=== PATIENT | male | born 1960 | race Caucasian/White ===

== ENCOUNTER 2018-08-22 23:09 | Emergency (ER) | payer MEDICAID ==
[~2018-08-22] VITALS: Ht 177.8 cm; Wt 81.6 kg
[2018-08-22 23:16] VITALS: BP 141/81
--- NOTE | 2018-08-22 23:23 | NUR ---
PT AMBULATED TO THE LOBBY, VSS
--- NOTE | 2018-08-23 00:53 | NUR ---
Patient ambulated to bed 12. RN evaluating patient at bedside.
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
--- NOTE | 2018-08-23 01:15 | NUR ---
PATIENT GIVEN URINAL AND ASKED TO PROVIDE URINE SAMPLE. STATES HE DOES NOT NEED TO PEE RIGHT NOW.
[2018-08-23 01:42] LABS: BASOPHILS % (AUTO) 0.5 % (0.0-2.0); EOSINOPHILS # (AUTO) 0.1 K/uL (0-0.4); EOSINOPHILS % (AUTO) 3.1 % (0.0-4.0); HEMATOCRIT 34.4 % (36-52); HEMOGLOBIN 11.4 g/dL (12.0-18.0); LYMPHOCYTES % (AUTO) 45.9 % (20.5-51.1); MEAN CORPUSCULAR HEMOGLOBIN 32 pg (27-31); MEAN CORPUSCULAR HGB CONC 33 g/dL (33-37); MEAN CORPUSCULAR VOLUME 96.7 fL (80-94); MONOCYTES # (AUTO) 0.3 K/uL (0.8-1.0); MONOCYTES % (AUTO) 7.8 % (1.7-9.3); NEUTROPHILS # (AUTO) 1.9 K/uL (1.8-7.7); NEUTROPHILS % (AUTO) 42.7 % (42.2-75.2); PLATELET COUNT (AUTO) 87 K/uL (140-450); RED BLOOD CELL COUNT(AUTO) 3.56 MIL/uL (4.20-6.10); RED CELL DISTRIBUTION WIDTH 17.6 % (11.6-13.7); WHITE BLOOD COUNT (AUTO) 4.4 K/uL (4.8-10.8)
--- NOTE | 2018-08-23 01:50 | NUR ---
PT asleep in bed. Easily arousable to name. VSS. Bedrails x2 up.
[2018-08-23 02:02] LABS: ANION GAP 16.4 (8-16); CREATININE 0.9 mg/dL (0.7-1.3); POTASSIUM 3.4 mmol/L (3.5-5.1)
[2018-08-23 02:07] LABS: ALBUMIN 3.1 g/dL (3.4-5.0); TOTAL BILIRUBIN 0.6 mg/dL (0.0-1.0)
[2018-08-23] MEDS ORDERED: FUROSEMIDE 40 MG TAB PO ONE (02:10)
--- NOTE | 2018-08-23 02:30 | NUR ---
Patient discharged with v/s stable. Written and verbal after care instructions given and explained. Patient alert, oriented and verbalized understanding of instructions. Ambulatory with steady gait. All questions addressed prior to discharge. ID band removed. Patient advised to follow up with PMD. Rx of Lasix and Ibuprofen given. Patient educated on indication of medication including possible reaction and side effects. Opportunity to ask questions provided and answered.
[2018-08-23 02:33] VITALS: BP 138/74
== END 2018-08-23 02:30 | disposition home or self-care (01) ==
LOC: MED 23:09
DX: D61.818 Other pancytopenia (principal); E87.6 Hypokalemia; R60.0 Localized edema; R74.0 Nonspecific elevation of levels of transaminase and lactic acid dehydrogenase [LDH]; B35.1 Tinea unguium; Z59.0 Homelessness; Z88.0 Allergy status to penicillin; Z98.890 Other specified postprocedural states
CPT/HCPCS: 80053; 83880; 85025; 99283

== ENCOUNTER 2018-08-23 23:12 | Emergency (ER) | payer MEDICAID ==
[~2018-08-23] VITALS: Ht 177.8 cm; Wt 79.4 kg
[2018-08-23 23:19] VITALS: BP 106/60
[2018-08-23 23:22] VITALS: BP 106/60
--- NOTE | 2018-08-23 23:22 | NUR ---
TO LOBBY A/W BED VIA W/C , PAOLA NOTED
[2018-08-24] MEDS ORDERED: NACL 0.9% 1,000 ML IV ONE (04:39)
--- NOTE | 2018-08-24 04:40 | NUR ---
PT TAKEN TO BED 1
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
--- NOTE | 2018-08-24 04:53 | NUR ---
PT REFUSES IV AT THIS TIME Addendum: 08/24/18 at 0455 by [email or web address] PT REFUSES IV ACCESS AT THIS TIME. MADE AWARE
--- NOTE | 2018-08-24 06:02 | NUR ---
Patient discharged with v/s stable. Written and verbal after care instructions given and explained. Patient verbalized understanding. ESCOTED OUT BY SECURITY. All questions addressed prior to discharge. Advised to follow up with PMD.
== END 2018-08-24 06:03 | disposition home or self-care (01) ==
LOC: MED 23:12
DX: M79.10 Myalgia, unspecified site (principal); H54.61 Unqualified visual loss, right eye, normal vision left eye
CPT/HCPCS: 99283

== ENCOUNTER 2018-09-03 09:23 | Inpatient (IN) | payer MEDICAID ==
[~2018-09-03] VITALS: Ht 177.8 cm; Wt 97.5 kg
--- NOTE | 2018-09-03 09:23 | NUR ---
Patient BIBA BLS, transferred to bed 4. RN evaluating patient at bedside.
--- NOTE | 2018-09-03 09:29 | NUR ---
Dr. Barrios evaluating patient at bedside.
[2018-09-03 09:30] VITALS: BP 163/96
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
--- NOTE | 2018-09-03 10:09 | NUR ---
Dr. Wellington evaluating patient at bedside.
[2018-09-03] MEDS ORDERED: KETOROLAC 30 MG/ML VIAL IVP ONE (10:15)
[2018-09-03] MEDS ORDERED: LEVOFLOXACIN 500 MG/D5W PREMIX 100 ML IV ONE (10:15)
[2018-09-03] MEDS ORDERED: ZOLPIDEM 5 MG TAB PO PRN (10:35)
[2018-09-03] MEDS ORDERED: VANCOMYCIN PER PHARMACY MC PRN (10:35)
[2018-09-03] MEDS ORDERED: ACETAMINOPHEN 325 MG TAB PO PRN (10:35)
[2018-09-03] MEDS ORDERED: ONDANSETRON 4 MG/2 ML VIAL IVP PRN (10:35)
--- NOTE | 2018-09-03 10:44 | NUR ---
information tech at bedside.
[2018-09-03 10:56] LABS: BASOPHILS % (AUTO) 0.7 % (0.0-2.0); EOSINOPHILS # (AUTO) 0.1 K/uL (0-0.4); EOSINOPHILS % (AUTO) 1.2 % (0.0-4.0); HEMATOCRIT 39.4 % (36-52); LYMPHOCYTES % (AUTO) 38.3 % (20.5-51.1); MEAN CORPUSCULAR HEMOGLOBIN 32 pg (27-31); MEAN CORPUSCULAR HGB CONC 33 g/dL (33-37); MEAN CORPUSCULAR VOLUME 98.1 fL (80-94); MONOCYTES # (AUTO) 0.5 K/uL (0.8-1.0); MONOCYTES % (AUTO) 8.6 % (1.7-9.3); NEUTROPHILS # (AUTO) 2.7 K/uL (1.8-7.7); NEUTROPHILS % (AUTO) 51.2 % (42.2-75.2); PLATELET COUNT (AUTO) 105 K/uL (140-450); RED BLOOD CELL COUNT(AUTO) 4.01 MIL/uL (4.20-6.10); RED CELL DISTRIBUTION WIDTH 18.1 % (11.6-13.7); WHITE BLOOD COUNT (AUTO) 5.3 K/uL (4.8-10.8)
[2018-09-03 11:01] LABS: ANION GAP 14.2 (8-16); CARBON DIOXIDE 27.8 mmol/L (21-32); CREATININE 0.7 mg/dL (0.7-1.3)
--- NOTE | 2018-09-03 11:05 | NUR ---
PT UNABLE TO GIVE URINE AT THIS TIME. DEXTER AMADOR NOTIFIED. DEXTER AMADOR STATED PT COULD BE TAKEN TO MED/SURG WITHOUT URINE SAMPLE.
[2018-09-03 11:07] LABS: ALBUMIN 3.5 g/dL (3.4-5.0); TOTAL BILIRUBIN 0.8 mg/dL (0.0-1.0)
[2018-09-03 11:18] LABS: FREE T4 (FREE THYROXINE) 0.9 ng/dL (0.76-1.46); MAGNESIUM 1.3 mg/dL (1.8-2.4); THYROID STIMULATING HORMONE 1.9 uIU/mL (0.34-3.74)
--- NOTE | 2018-09-03 11:30 | NUR ---
Patient will be admitted to care of DR MONTANO. Admited to MED/SURG. Will go to room 105A. Belongings list completed. Report to BOBY ROSA.
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
[2018-09-03 11:57] LABS: PROTHROMBIN TIME 11.3 secs (10.8-13.4)
[2018-09-03 12:00] VITALS: BP 159/74
[2018-09-03] MEDS: NACL 0.9% 1,000 ML IV SCH (12:28)
--- NOTE | 2018-09-03 13:00 | NUR ---
PATIENT SITTING IN BED WATCHING TV. NO SIGNS OF DISTRESS ON RA. BED IN LOW POSITION. PATIENT ABLE TO MAKE NEEDS KNOWN. WILL CONTINUE TO MONITOR
[2018-09-03 13:24] LABS: APPEARANCE,URINE CLEAR (CLEAR); BILIRUBIN,URINE NEGATIVE (NEGATIVE); BLOOD, URINE TRACE-L (NEGATIVE); COLOR,URINE YELLOW (YELLOW); LEUKOCYTE ESTERASE ,URINE NEGATIVE (NEGATIVE); NITRITE, URINE NEGATIVE (NEGATIVE); PH,URINE 6.5 (5.0-9.0); UGLUCOSE NEGATIVE (NEGATIVE)
[2018-09-03 13:48] LABS: WBC,URINE NONE SEEN /HPF (0-5)
[2018-09-03 13:49] LABS: BARBITURATE, URINE NEG. ng/ml (NEG <=200); BENZODIAZEPINE, URINE NEG. ng/mL (NEG <=200); CANNABINOID, URINE NEG. ng/mL (NEG <=50); COCAINE, URINE NEG. ng/mL (NEG <=300); OPIATE, URINE NEG. ng/mL (NEG <=2000); PHENCYCLIDINE SCREEN,URINE NEG. ng/mL (NEG <=25)
--- NOTE | 2018-09-03 14:10 | NUR ---
SKIN ASSESSMENT DONE WITH PRIMARY RN , PT. WAS MAD WHEN QUESTION OF MEDICAL HISTORY. NO ACTIVE OPEN WOUNDS, -MULTIPLE SCABS TO HEAD (1X1CM), FACE, BILATERAL DORSAL FOOT AND TOE AND RIGHT LATERAL HEELS (1X2CM). LEFT 1ST METATARSAL PLANTAR SCAB 2X1CM. -INTERSPACES DEBRIS WITH FUNGAL TOENAILS -BILATERAL FEET CELLULITIS ERYTHEMA, +2 EDEMA. SKIN INTACT RECOMMENDATIONS: -PAINTS ALL SCABS AREAS WITH BETADINE SOLUTION AND LEAVE IT OPEN TO AIR. -ASSIST TO SOAK INTERSPACE FOR CLEANING OF DEBRIS QD -APPLY ANTIFUNGAL CREAM TO TOENAILS AND INTERSPACES BID AND LEAVE IT OPEN TO AIR ALL ABOVE RECOMMENDATIONS DISCUSSED WITH PRIMARY RN
[2018-09-03] MEDS: VANCOMYCIN 1GM/DEXT 5% PREMIX 200 ML IV SCH (14:22)
[2018-09-03] MEDS: HYDROcodone/APAP 7.5/325 MG 1 TAB PO PRN (14:23)
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
[2018-09-03 16:00] VITALS: BP 152/82
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
[2018-09-03] MEDS ORDERED: MAG SULF 2000 MG/WATER PREMIX 100 ML IV ONE (16:50)
[2018-09-03] MEDS ORDERED: MULTIVITAMIN-12 10 ML, THIAMINE 100 MG, MAGNESIUM SULFATE 50% 2,000 MG, FOLIC ACID 1 MG... IV ONE ×5 (16:50)
[2018-09-03] MEDS: MAG SULF 2000 MG/WATER PREMIX 100 ML IV SCH ×2 (16:58→20:29)
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
--- NOTE | 2018-09-03 19:06 | NUR ---
GAVE BEDSIDE REPORT TO HRIS COORDINATOR NURSE. PATIENT ENDORSED IN STABLE CONDITION. ENDORSED SECOND MAGNESIUM BAG AND BANANA BAG TO HRIS COORDINATOR NURSE
--- NOTE | 2018-09-03 19:07 | NUR ---
RECEIVED BEDSIDE REPORT FROM DAY SHIFT RN, PATIENT IN STABLE CONDITION, AWAKE AND ALERT, NO SIGNS OF DISTRESS ON RA, IV IN LEFT FOREARM 22 G, DRESSING DRY AND INTACT. WILL CONTINUE TO MONITOR.
[2018-09-03 20:00] VITALS: BP 155/78
[2018-09-03] MEDS: DOCUSATE SODIUM 100 MG GELCAP PO SCH (20:10)
[2018-09-03] MEDS: LORazepam 1 MG TAB PO SCH (20:10)
[2018-09-03] MEDS: diphenhydrAMINE 50 MG/ML VIAL IVP PRN (22:31)
--- NOTE | 2018-09-03 22:31 | NUR ---
PATIENT COMPLAINING OF INTENSE ITCHING IN HIS SCALP AND FACE. ADMINISTERED BENADRYL ORDERED, WILL CONTINUE TO MONITOR. NO SIGNS OF DISTRESS ON RA.
--- NOTE | 2018-09-03 23:58 | NUR ---
PATIENT STILL COMPLAINING OF ITCHING ON HIS HEAD AND SCALP. DR. LUCAS, ADMINISTERED ORDERED PRN MEDICATION. WILL CONTINUE TO MONITOR.
[2018-09-04] MEDS ORDERED: hydrOXYzine HCL 25 MG TAB PO SCH
[2018-09-04 00:05] VITALS: BP 153/77
[2018-09-04] MEDS: NACL 0.9% 1,000 ML IV SCH ×3 (00:52→19:55)
[2018-09-04] MEDS: LORazepam 2 MG/ML VIAL IVP PRN (01:56)
--- NOTE | 2018-09-04 01:58 | NUR ---
PATIENT IS SHAKING AND COMPLAINING OF NAUSEA. ADMINISTERED PRN MEDICATIONS. PATIENT EXPRESSED RELIEF. WILL CONTINUE TO MONITOR.
[2018-09-04] MEDS: VANCOMYCIN 1GM/DEXT 5% PREMIX 200 ML IV SCH ×3 (02:21→21:18)
--- NOTE | 2018-09-04 02:28 | NUR ---
PATIENT SLEEPING COMFORTABLY IN BED. BED LOW, CALL LIGHT IN REACH, WILL CONTINUE TO MONITOR.
--- NOTE | 2018-09-04 04:05 | NUR ---
PATIENT SLEEPING, NO SIGNS OF DISTRESS, BED LOW, CALL LIGHT IN REACH.
[2018-09-04] MEDS: diphenhydrAMINE 50 MG/ML VIAL IVP PRN (05:27)
[2018-09-04] MEDS: LORazepam 1 MG TAB PO SCH (05:27)
[2018-09-04 06:52] LABS: ANION GAP 14.4 (8-16); CARBON DIOXIDE 26.4 mmol/L (21-32); CREATININE 0.7 mg/dL (0.7-1.3); POTASSIUM 3.8 mmol/L (3.5-5.1)
[2018-09-04 07:03] LABS: CHOL/HDL RATIO 1.8 (1-4.5); MAGNESIUM 1.6 mg/dL (1.8-2.4); PHOSPHORUS 3.5 mg/dL (2.5-4.9)
--- NOTE | 2018-09-04 07:26 | NUR ---
ENDORSED PT TO DAY SHIFT NURSE JAME RN, PT STABLE, NO DISTRESS NOTED, CALL LIGHT WITHIN REACH.
--- NOTE | 2018-09-04 07:27 | NUR ---
GOT BEDSIDE REPORT FROM EDGER SAW OPERATOR NURSE. PATIENT ON MED SURGE AND STANDARD PRECAUTIONS IN PLACE. PATIENT AAOX4 AND ON ROOM AIR, NO DISTRESS NOTED. BLE CELLULITIS, TOENAIL FUNGUS, SCABS AND SORES PRESENT ON FACE AND FEET, CHEST AND ABDOMEN. PATIENT AMBULATORY AND CONTINENT WITH BEDSIDE URINAL. IV ON L FA 22 G INFUSING NS AT 70, IV ASYMPTOMATIC PATENT AND INTACT. BED IN LOW POSITION, CALL LIGHT WITHIN REACH, SIDE RAILS X2 UP
[2018-09-04 07:50] LABS: BASOPHILS % (AUTO) 0.6 % (0.0-2.0); EOSINOPHILS % (AUTO) 1.2 % (0.0-4.0); HEMATOCRIT 34.8 % (36-52); HEMOGLOBIN 11.7 g/dL (12.0-18.0); LYMPHOCYTES # (AUTO) 1.1 K/uL (2.0-11.5); LYMPHOCYTES % (AUTO) 28.5 % (20.5-51.1); MEAN CORPUSCULAR HEMOGLOBIN 33 pg (27-31); MEAN CORPUSCULAR HGB CONC 34 g/dL (33-37); MEAN CORPUSCULAR VOLUME 97.1 fL (80-94); MONOCYTES # (AUTO) 0.5 K/uL (0.8-1.0); MONOCYTES % (AUTO) 12.2 % (1.7-9.3); NEUTROPHILS # (AUTO) 2.2 K/uL (1.8-7.7); NEUTROPHILS % (AUTO) 57.5 % (42.2-75.2); PLATELET COUNT (AUTO) 73 K/uL (140-450); RED BLOOD CELL COUNT(AUTO) 3.59 MIL/uL (4.20-6.10); RED CELL DISTRIBUTION WIDTH 17.6 % (11.6-13.7); WHITE BLOOD COUNT (AUTO) 3.8 K/uL (4.8-10.8)
[2018-09-04 08:00] VITALS: BP 156/93
--- NOTE | 2018-09-04 08:10 | NUR ---
PATIENT HAS BEEN SCREENED AND CATEGORIZED MODERATE NUTRITION RISK. PATIENT WILL BE SEEN WITHIN 3-5 DAYS OF ADMISSION. 09/05/18[address]
[2018-09-04] MEDS ORDERED: MAG SULF 2000 MG/WATER PREMIX 100 ML IV SCH (09:00)
[2018-09-04] MEDS: DOCUSATE SODIUM 100 MG GELCAP PO SCH ×2 (09:54→21:17)
[2018-09-04] MEDS: chlordiazePOXIDE 25 MG CAP PO SCH ×3 (09:54→17:58)
[2018-09-04] MEDS: THIAMINE 100 MG TAB PO SCH (09:54)
[2018-09-04] MEDS: MULTIVITAMIN 1 TAB PO SCH (09:55)
[2018-09-04] MEDS: KETOCONAZOLE 2% 15 GM TUBE TP SCH (09:56)
[2018-09-04] MEDS: FOLIC ACID 1 MG TAB PO SCH (09:59)
--- NOTE | 2018-09-04 10:07 | NUR ---
ADMINISTERED SCHEDULED MEDS. PATIENT TOLERATED WELL
[2018-09-04] MEDS: HYDROcodone/APAP 7.5/325 MG 1 TAB PO PRN ×3 (10:32→23:27)
--- NOTE | 2018-09-04 12:26 | NUR ---
PATIENT EATING LUNCH AND WATCHING TV, ON ROOM AIR, NO DISTRESS NOTED
[2018-09-04] MEDS: ANTIFUNGAL CLEAR OINTMENT TP SCH ×2 (13:00)
[2018-09-04] MEDS: GAUZE TP SCH (13:00)
--- NOTE | 2018-09-04 14:00 | NUR ---
PATIENT WATCHING TV, ON ROOM AIR, NO DISTRESS NOTED
[2018-09-04 16:00] VITALS: BP 163/92
--- NOTE | 2018-09-04 16:28 | NUR ---
Pocketed Spring Assembler Note: I met with patient at bedside. He stated he plans to go to his friend's home in [facility] upon discharge. He reported he does not know his friend's home address but knows how to get there. He requested a bus pass. He is aware we are waiting for MD's discharge plan recommendation. I provided him with my contact information. Range Conservationist and/or Stallion Manager will follow up as needed.
--- NOTE | 2018-09-04 18:01 | NUR ---
ADMINISTERED SCHEDULED MEDS AND NORCO PRN FOR 11/10 PAIN
--- NOTE | 2018-09-04 19:16 | NUR ---
GAVE BEDSIDE REPORT TO MOE LONG. PATIENT ENDORSED IN STABLE CONDITION
--- NOTE | 2018-09-04 19:17 | NUR ---
RECEIVED BEDSIDE REPORT FROM BALANCE SCREWHEAD POLISHER MOE KILGORE, PATIENT AWAKE AND SITTING UP IN BED, NO SIGNS OF DISTRESS ON RA, IV SITE INTACT AND INFUSING WELL TO LEFT FORE ARM 22G, WILL CONTINUE TO MONITOR.
[2018-09-04 20:00] VITALS: BP 167/89
--- NOTE | 2018-09-04 21:00 | NUR ---
ORDERED HEPARIN NOT ADMINISTERED DUE TO LOW PLT COUNT OF 73.
--- NOTE | 2018-09-04 22:20 | NUR ---
PATIENT BED WAS WET, CHANGED BEDDING, PATIENT NOW RESTING COMFORTABLY IN BED, CALL LIGHT WITHIN REACH, BED IN LOW POSITION. NO REACTION TO VANCOMYCIN INFUSION. WILL CONTINUE TO MONITOR.
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
--- NOTE | 2018-09-05 00:58 | NUR ---
PATIENT IS AGITATED AND TRYING TO LEAVE. HE DISCONNECTED HIS IV TUBING FROM THE PRIMARY FLUID BAG. REORIENTED PATIENT TO ROOM AND ADMINISTERED PRN ATIVAN 2MG IVP. PATIENT IS NOW MORE CALM AND COOPERATIVE. WILL NOTIFY DOCTOR.
[2018-09-05] MEDS: LORazepam 2 MG/ML VIAL IVP PRN ×2 (00:59→05:05)
[2018-09-05] MEDS: ANTIFUNGAL CLEAR OINTMENT TP SCH ×2 (01:06→13:25)
[2018-09-05] MEDS: NACL 0.9% 1,000 ML IV SCH (01:07)
--- NOTE | 2018-09-05 01:13 | NUR ---
PATIENT REMOVED THE SCAB FROM ONE OF HIS WOUNDS THAT WAS PRESENT ON ADMISSION. WOUND IS NOW OPEN AND HAS BEEN PHOTOGRAPHED. CLEANED WOUND WITH NORMAL SALINE AND APPLIED COMPOSITE DRESSING. WILL NOTIFY DOCTOR.
--- NOTE | 2018-09-05 02:05 | NUR ---
PATIENT IS SLEEPING IN BED, NO SIGNS OF DISTRESS ON RA. WILL CONTINUE TO MONITOR.
--- NOTE | 2018-09-05 02:54 | NUR ---
PATIENT IS STILL SLEEPING, NO SIGNS OF DISTRESS ON RA, CALL LIGHT IN REACH, BED IN LOW POSITION. WILL CONTINUE TO MONITOR.
--- NOTE | 2018-09-05 04:00 | NUR ---
PATIENT IS AWAKE AND TRYING TO LEAVE. PACKED UP HIS BELONGINGS. I CALMED HIM, REORIENTED HIM, AND MADE HIM COMFORTABLE IN THE BED.
[2018-09-05] MEDS: VANCOMYCIN 1GM/DEXT 5% PREMIX 200 ML IV SCH (05:05)
--- NOTE | 2018-09-05 05:18 | NUR ---
PATIENT IS AGITATED, ADMINISTERED ATIVAN ORDERED. WILL CONTINUE TO MONITOR.
--- NOTE | 2018-09-05 06:19 | NUR ---
PATIENT VOIDED IN THE BED, PROVIDED CLEAN LINENS AND GOWN, POSITIONED PATIENT FOR COMFORT, PATIENT IS RESTING IN BED AT THIS TIME WITH NO SIGNS OF DISTRESS, BED LOW, CALL LIGHT WITHIN REACH. WILL ENDORSE TO DAY SHIFT RN FOR CONTINUITY OF CARE.
--- NOTE | 2018-09-05 07:22 | NUR ---
GAVE BEDSIDE REPORT AND ENDORSED TO DAY SHIFT RN. FOR CONTINUITY OF CARE.
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
[2018-09-05 08:00] VITALS: BP 157/97
[2018-09-05] MEDS ORDERED: ASPIRIN 81 MG TAB.CHEW PO SCH (09:00)
[2018-09-05] MEDS: chlordiazePOXIDE 25 MG CAP PO SCH ×2 (09:10→13:24)
[2018-09-05] MEDS: FOLIC ACID 1 MG TAB PO SCH (09:10)
[2018-09-05] MEDS: MULTIVITAMIN 1 TAB PO SCH (09:10)
[2018-09-05] MEDS: THIAMINE 100 MG TAB PO SCH (09:10)
[2018-09-05] MEDS: DOCUSATE SODIUM 100 MG GELCAP PO SCH (09:10)
[2018-09-05] MEDS: KETOCONAZOLE 2% 15 GM TUBE TP SCH (09:11)
--- NOTE | 2018-09-05 09:18 | NUR ---
ADMINISTERED MEDS PER MD ORDER, PATIENT TOLERATED WELL. HOLD HEPARIN DUE TO AM LAB PLT LEVEL IS 73. PATIENT INSISTED TO WALK TO THE BATHROOM , INSTEAD OF USING THE URANAL AT BEDSIDE. ASSISTED PATIENT TO USE TO BATHROOM. PATIENT'S GAIT IS UNSTEADY AND NEED ASSIST ON WALKING. INSTRUCTED PATIENT TO USE THE CALL LIGHT FOR ASSISTANCE AND DO NOT GET OUT OF BED ALONE. PATIENT VERBALIZED "OK."
--- NOTE | 2018-09-05 11:39 | NUR ---
PATIENT ATTEMPTED TO GET OUT OF BED AND WALK AROUND THE REYES WAY. ADVISED PATIENT THAT DUE TO HIS UNSTEADY GAIT, HE NEEDS TO CALL FOR ASSISTANCE. ASSISTED PT TO GO BACK ON BED AND INSTRUCTED PATIENT TO USE THE CALL LIGHT. PATIENT STATED "OK".
[2018-09-05] MEDS ORDERED: LIB5 PO (12:55)
[2018-09-05] MEDS ORDERED: IBUP-2213 PO (12:56)
[2018-09-05] MEDS ORDERED: ASPI-1718 PO (12:57)
[2018-09-05] MEDS ORDERED: ATOR10TA PO (12:57)
[2018-09-05] MEDS ORDERED: CEPH250C16 PO (12:58)
[2018-09-05] MEDS: GAUZE TP SCH (13:25)
--- NOTE | 2018-09-05 13:50 | NUR ---
WAS TOLD BY DR. SOLIZ THAT THIS PATIENT NEEDED A WHEELCHAIR TO GO HOME. CALLED [facility] AND WAS TOLD THAT ORDER GOES [facility]ROUGH [facility]. MADE SEVERAL CALLS AND LEFT SEVERAL MESSAGES WITH [employer]. FINALLY GOT A CALL BACK FROM DUSTIN FROM [facility], . SHE SAID THAT NO AUTH IS NEEDED IF COST IS LESS THAN $500. THEY USE [employer] FOR DME. I CALLED MOHINDER FROM [employer] [phone] AND INFORMED HER . SHE SAID TO FAX FACE SHEET, ORDER, H&P AND DR. TAVARES NUMBER TO [phone].
--- NOTE | 2018-09-05 14:00 | NUR ---
Assisted patient in shower, patient verbally abusive and mean to staff while doing shower, dressing changed done on both feet after the shower.
--- NOTE | 2018-09-05 14:44 | NUR ---
Wool Grader Note: I met with patient at bedside. He stated he would like a bus pass to get to his friend's home in [place], [place]. He does not know his friend's home address. He was adamant about taking a bus instead of a taxi. He is aware [facility] was willing to arrange taxi transportation. He became agitated when I explained to him we could arrange taxi transportation service for him to get to [place], [place], [facility].
--- NOTE | 2018-09-05 14:50 | NUR ---
THREE BUS PASS GIVEN TO PATIENT PER PATIENT REQUEST, SNACKS ALSO GIVEN, PATIENT WAITING FOR HIS WHEELCHAIR.
--- NOTE | 2018-09-05 15:55 | NUR ---
EDUCATED PATIENT ON DISEASE PROCESS, ABN S/SX, WHEN TO GO TO THE ER, EDUCATED ON MEDS, GAVE PRESCRIPTIONS, PATIENT REMOVED OWN IV PER CHARGE NURSE. PATIENT REFUSED TO REMOVE ID BANDS. EDUCATED ON THE IMPORTANCE OF REMOVING, PATIENT REFUSED AND SAID "GET THE FUCK AWAY". EDUCATED ON SHELTERS AND HAD PATIENT SIGN HOMELESS PACKET. EDUCATED ON WOUND CARE AND FOLLOW UP W PCP. EDUCATED ON THE IMPORTANCE TO STOP ALCOHOL USE. PATIENT SIGNED PAPERWORKS. PHOTO OF WOUND DONE. PATIENT GIVEN BUS PASSES, AND STATES HES GOING TO HIS FRIENDS HOUSE. HE LEFT IN STABLE CONDITION. Addendum: 09/05/18 at 1640 by Rosalina Stern RN PATIENT REFUSED TO WAIT FOR A WHEELCHAIR. PATIENT EDUCATED ON THE IMPORTANCE OF WAITING FOR THE WHEELCHAIR, PATIENT WANTS TO LEAVE NOW
--- NOTE | 2018-09-05 16:00 | NUR ---
PATIENT KEEP INSISTING TO GO WITH BUS PASS HE CANNOT WAIT FOR HIS WHEELCHAIR, SAND CASTER ANANDA MADE AWARE AND DR. SOLIZ IS AWARE.
--- NOTE | 2018-09-05 17:31 | NUR ---
LATE ENTRY. CALLED [employer] AT ABOUT 1430 AND SPOKE WITH MOHINDER. [phone]. STILL WAITING TO BE ABLE TO SEND A WHEELCHAIR FOR THE PATIENT. WAITING FOR INSURANCE CLEARANCE. I GAVE MOHINDER THE PHONE NUMBER TO THE FLOOR WHEN SHE IS ABLE TO DELIVER THE WHEELCHAIR. Addendum: 09/05/18 at 1739 by Radha Rick CM LATE ENTRY CALLED MOHINDER AT [employer] AND INFORMED HER PATIENT LEFT THE HOSPITAL.
== END 2018-09-05 15:55 | disposition home or self-care (01) | DRG 383 ==
LOC: MED 09:23 → MTU 10:34
PROVIDERS: ADMIT General Practice; ATTEND General Practice
DX: L03.116 Cellulitis of left lower limb (principal); G92 Toxic encephalopathy; E83.42 Hypomagnesemia; I73.9 Peripheral vascular disease, unspecified; F10.10 Alcohol abuse, uncomplicated; I10 Essential (primary) hypertension; L03.115 Cellulitis of right lower limb; Y90.8 Blood alcohol level of 240 mg/100 ml or more; H33.21 Serous retinal detachment, right eye; L57.0 Actinic keratosis; E66.9 Obesity, unspecified; Z68.30 Body mass index [BMI] 30.0-30.9, adult; Z71.3 Dietary counseling and surveillance; Z88.0 Allergy status to penicillin; Z59.0 Homelessness
CPT/HCPCS: 36415; 71045; 73630; 80048; 80053; 80202; 80305; 81001; 82150; 83036; 83605; 83690; 83735; 83880; 84100; 84439; 84443; 84484; 85025; 85610; 85730; 87040; 87081; 87086; 93005; 93925; 93970; 99285; A9153; G0482; J1200; J1644; J1885; J1956; J2060; J2405; J3370; J3411; J3475; J3490; J7030; J7042; Q0092